=== PATIENT | female | born 1940 | race Hispanic/Latino ===

== ENCOUNTER → 2022-09-18 | Outpatient (CLI) | payer OTHER ==
[2022-09-18 16:01] LABS: BASOPHILS % (AUTO) 1.1 % (0.0-5.0); EOSINOPHILS % (AUTO) 1.7 % (0.0-8.0); HEMATOCRIT 40.4 % (36-48); LYMPHOCYTES % (AUTO) 41.9 % (21.0-51.0); MEAN CORPUSCULAR HEMOGLOBIN 32.8 pg (27.0-33.0); MEAN CORPUSCULAR HGB CONC 32.9 g/dL (32.0-36.0); MEAN CORPUSCULAR VOLUME 99.8 fL (79-99); MONOCYTES % (AUTO) 12.1 % (3.0-13.0); NEUTROPHILS % (AUTO) 42.9 % (40.0-77.0); PLATELET COUNT (AUTO) 233 K/uL (130-400); RED BLOOD CELL COUNT(AUTO) 4.05 MIL/uL (4.00-5.50); RED CELL DISTRIBUTION WIDTH 13.6 % (11.0-15.5); WHITE BLOOD COUNT (AUTO) 6.4 K/uL (4.8-10.8)
[2022-09-18 16:13] LABS: ALBUMIN 3.5 g/dL (3.5-5.0); POTASSIUM 4.3 mmol/L (3.5-5.1); TOTAL PROTEIN, SERUM 8.6 g/dL (6.0-8.3)
== END | disposition home or self-care (01) ==
LOC: LAB 15:00
PROVIDERS: ATTEND Internal Medicine Gastroenterology
DX: R63.0 Anorexia (principal)
CPT/HCPCS: 36415; 80053; 85025